=== PATIENT | female | born 1950 | race Caucasian/White ===

== ENCOUNTER → 2016-03-22 | Outpatient (CLI) | payer MEDICARE, BC ==
[~2016-03-22] MED LIST: ALAVERT10 M1 PO; AMOXICILLIN 8751 TAB PO; BENADRYL25 M2 PO; DESYREL 50MG50 MG PO; FOLIC ACID 40400 MCG PO; GLUCOSAMINE & C1 CA1 PO; GLUCOSAMINE500 M1 PO; IRON325 M1 PO; LEXAPRO20 MG PO; MULTIVITAMIN FO1 CAP PO; NAFTIN11 TP; NORCO 325 MG-7.1 TAB PO; OMEGA 31000 MG PO; OMEGA-3 FISH1200 MG PO; PRILOTC PO; RITALIN 20M20 MG/TAB PO; ROXICODONE 55 MG/TAB PO; SUPER EPA 2002000 MG PO; VITAMIN C500 MG PO; XARELTO10 MG PO; [UNRECOGNIZED DRUG - OTHER] TP
== END ==
LOC: MC.RAD 08:20
DX: Z12.31 Encounter for screening mammogram for malignant neoplasm of breast (principal)

== ENCOUNTER 2017-03-05 06:04 | Day surgery (SDC) | payer MEDICARE, BC ==
[2017-03-05] VITALS (12 sets, daily range): BP systolic 106–150; BP diastolic 65–88; PULSE 84–107; TEMP 98–98.3
[~2017-03-05] VITALS: Ht 162.6 cm; Wt 80.9 kg
[2017-03-05] MEDS ORDERED: PROAIR HFA0.09 MG/AC IH (07:08)
[2017-03-05] MEDS ORDERED: WELLBUTRIN SR150 M1 PO (07:12)
[2017-03-05] MEDS ORDERED: PREMARIN VAG42.5 GM VG (07:14)
[2017-03-05] MEDS ORDERED: OMEGA-3 1000 MG1 CAP PO (07:23)
[2017-03-05] MEDS ORDERED: RITALIN SR20 MG PO (07:24)
[2017-03-05] MEDS ORDERED: OSTEO-BI-FLEX 21 TAB PO (07:25)
[2017-03-05] MEDS ORDERED: ICAPS TABLET1 EACH PO (07:26)
[2017-03-05] MEDS ORDERED: MULTI VITAMINS1 TAB PO (07:27)
[2017-03-06 00:05] VITALS: BP 131/69; PULSE 97; TEMP 98.1
[2017-03-06 04:20] VITALS: BP 132/75; PULSE 89; TEMP 98.5
[2017-03-06 09:16] VITALS: BP 131/75; PULSE 87; TEMP 97.8
== END 2017-03-06 11:35 | disposition home or self-care (01) ==
LOC: SDCO 06:04 → INPTSU 06:04 → SURG 06:04 → EDSTATUS 08:00 → SURG 08:00 → INPTSU 11:47 → SDCO 03-06 11:35 → SURG 03-06 11:35
DX: N99.3 Prolapse of vaginal vault after hysterectomy (principal); M19.90 Unspecified osteoarthritis, unspecified site; E78.5 Hyperlipidemia, unspecified; F32.9 Major depressive disorder, single episode, unspecified; K21.9 Gastro-esophageal reflux disease without esophagitis; F90.9 Attention-deficit hyperactivity disorder, unspecified type; Z96.653 Presence of artificial knee joint, bilateral; Z90.710 Acquired absence of both cervix and uterus; Z90.49 Acquired absence of other specified parts of digestive tract; Z85.828 Personal history of other malignant neoplasm of skin; Z87.891 Personal history of nicotine dependence; Z80.0 Family history of malignant neoplasm of digestive organs; Z82.49 Family history of ischemic heart disease and other diseases of the circulatory system
CPT/HCPCS: A4314; A4315; A9284; C1713; C1781; J0690; J1100; J1885; J2405; J2704; J3010; J7120

== ENCOUNTER → 2017-07-02 | Outpatient (CLI) | payer MEDICARE, BC ==
[~2017-07-02] MED LIST changes: +ICAPS TABLET1 EACH PO; +MULTI VITAMINS1 TAB PO; +OMEGA-3 1000 MG1 CAP PO; +OSTEO-BI-FLEX 21 TAB PO; +PREMARIN VAG42.5 GM VG; +PROAIR HFA0.09 MG/AC IH; +RITALIN SR20 MG PO; +WELLBUTRIN SR150 M1 PO
== END ==
LOC: MC.RAD 05-21 09:40
DX: Z12.31 Encounter for screening mammogram for malignant neoplasm of breast (principal)

== ENCOUNTER 2018-01-07 08:11 | Day surgery (SDC) | payer MEDICARE, BC ==
[~2018-01-07] VITALS: Ht 162.6 cm; Wt 81.7 kg
[2018-01-07] MEDS ORDERED: FIBER GUMMIES2.5 GM PO (08:30)
[2018-01-07] MEDS ORDERED: FLONASEALLERGY NS (08:31)
[2018-01-07] MEDS ORDERED: GLUCOSAMINE & C1 CA2 PO (08:32)
[2018-01-07] MEDS ORDERED: MIRTAZAPINE7.5 MG PO (08:32)
[2018-01-07 08:39] VITALS: BP 130/89; PULSE 85; TEMP 97.9
[2018-01-07 10:15] VITALS: BP 121/92; PULSE 83; TEMP 98.3
[2018-01-07 10:30] VITALS: BP 116/73; PULSE 86
[2018-01-07 10:45] VITALS: BP 115/83; PULSE 86
== END 2018-01-07 11:24 | disposition home or self-care (01) ==
LOC: SDCO 08:11
DX: K29.30 Chronic superficial gastritis without bleeding (principal); K22.2 Esophageal obstruction; K44.9 Diaphragmatic hernia without obstruction or gangrene; K64.0 First degree hemorrhoids; K59.00 Constipation, unspecified; Z86.010 Personal history of colon polyps; Z80.0 Family history of malignant neoplasm of digestive organs; F90.9 Attention-deficit hyperactivity disorder, unspecified type; Z90.710 Acquired absence of both cervix and uterus; Z96.653 Presence of artificial knee joint, bilateral; E78.2 Mixed hyperlipidemia; M19.90 Unspecified osteoarthritis, unspecified site; Z90.49 Acquired absence of other specified parts of digestive tract
CPT/HCPCS: OP; J2250; J2405; J3010; J7030

== ENCOUNTER → 2021-02-16 | Outpatient (CLI) | payer MEDICARE, BC ==
[~2021-02-16] MED LIST changes: +FIBER GUMMIES2.5 GM PO; +FLONASEALLERGY NS; +GLUCOSAMINE & C1 CA2 PO; +MIRTAZAPINE7.5 MG PO
== END ==
LOC: MC.RAD 09:00
DX: Z12.31 Encounter for screening mammogram for malignant neoplasm of breast (principal)

== ENCOUNTER → 2022-03-30 | Outpatient (CLI) | payer MEDICARE, BC | LOC: MC.RAD 08:44 | DX: Z12.31 Encounter for screening mammogram for malignant neoplasm of breast (principal) ==